=== PATIENT | female | born 2000 | race Caucasian/White ===

== ENCOUNTER 2019-12-06 15:06 | Observation (INO) ==
[2019-12-06] MEDS ORDERED: SODIUM CHLORIDE 1,000 ML IV STA (15:27)
--- NOTE | 2019-12-06 15:36 | ED.PDOC ---
General ED Provider: Dr. LORA MARRUFO MD Chief Complaint: Diabetes Stated Complaint: elevated blood sugar today, above 400 at the out patient clinic, no hx diabetes, + recent polyuria and polydipsia, no fever, +nausea, no emesis, no rash, no injury, speech fluent Time Seen by Physician: 15:33 Mode of Arrival: Wheelchair Information Source: Patient Primary Care Provider: LITZY ALLEN APRN Nursing and Triage Documentation Reviewed and Agree: Yes Does patient meet sepsis criteria?: No System Inflammatory Response Syndrome: Not Applicable Sepsis Protocol: For patient's 13 years and over: Temp is 96.8 and below OR 101 and greater Pulse >90 BPM Resp >20/minute Acutely Altered Mental Status Are patient's symptoms suggestive of a new infection, such as: -Pneumonia -Skin, Soft Tissue -Endocarditis -UTI -Bone, Joint Infection -Implantable Device -Acute Abdominal Infection -Wound Infection -Meningitis -Blood Stream Catheter Infection -Unknown Miscellaneous Complaint Exam Complex/Multi-System Complaint/Exam Onset/Duration: today Symptoms Are: Still present Initial Severity: Mild Associated Signs and Symptoms: Denies Confusion and Chest pain Review of Systems Review Of Systems Constitutional: Reports Weakness; Denies Fever Eyes: Denies Vision change Ears, Nose, Mouth, Throat: Denies Mouth pain Respiratory: Denies Cough Cardiac: Denies Chest pain GI: Reports Nausea; Denies Abdomen distended, Abdominal pain and Vomiting : Denies Dysuria Musculoskeletal: Denies Back pain Skin: Denies Rash Neurological: Denies Cognitive dysfunction All Other Systems: Other [facility] Medical History ADD (attention deficit disorder) (Acute) Aundrea albicans infection (Acute) Fibromyalgia (Acute) Seasonal allergies (Acute) Family History (Updated 12/06/19 @ 18:01 by HARLEEN LUKE RN) Mother Hypertension Fibromyalgia Lupus (systemic lupus erythematosus) Father Diabetes TIA (transient ischemic attack) Seasonal allergies Hypertension Mini stroke Asthma BROTHER Seasonal allergies ADHD MATERNAL GRANDFATHER Cancer Fibromyalgia Arthritis Pancreatic cancer PATERNAL GRANDMOTHER Cancer Diabetes Hypertension PVD (peripheral vascular disease) Blindness Social History Smoking and tobacco status: Never smoker Second hand smoke exposure: Yes Substance use type: does not use Agree to transfusion: Yes Adopted: No Caregiver/support person: No Foster care: No Household members: family Housing: house Marital status: S SINGLE Lives independently: Yes Daycare: no daycare Number of children: 0 Number of grandchildren: 0 Highest education level completed: Associate degree: occupational, technical, vocational program Financial difficulty paying for basics: somewhat hard service: No retirement: No Current occupational status: employed 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 Pets and animals: Yes Leisure activites: sports, exercise, clubs, art, music, games, hunting, fishing and reading History of recent travel: No Sexually active: No Do you think of yourself as: straight/heterosexual Seatbelt use: always Helmet use: No Drives intoxicated or rides with intoxicated roll off driver: No Current diet type/program: regular Well-balanced diet: daily Caffeine: Yes (coffee) Reads food labels: sometimes During the past year weight has: remained stable Water heater temperature set < 120 degrees: Yes Working smoke detector in home: Yes Fire extinguisher in home: Yes Carbon monoxide detector in home: Yes What type of physical activity do you participate in?: walking and yoga Physical activity functional status: independent ambulation Female Reproductive History Menstrual Hx Hysterectomy: No Hx Tubal Ligation: No Physical Exam Physical Exam Appearance: Reports Well-appearing Ill-appearing: None Pain Distress: None Eyes: Reports EOMI ENT: Reports Dry mucosa Neck: Supple Respiratory: Reports Airway patent Cardiovascular: Reports RRR GI/: Reports Soft and Nontender Musculoskeletal: Reports ROM intact Skin: Reports Warm and Dry Neurological: Reports Sensation intact Psychiatric: Reports Affect appropriate Interpretation Radiology Interpretation Radiology Interpretation By: Radiologist Radiology Results: No acute changes Exam Interpreted: CXR Re-Evaluation Re-Evaluation Time of Re-Evaluation: 16:37 Status: Unchanged Appearance: NAD Neuro: Alert and Oriented X3 Additional Comments: new onset diabetes admit d/w ASA [place] 19, serum acetone neg, serum glucose 409 Critical Care Note Critical Care Note Total Time (mins): 0 Course Course Hematology/Chemistry: 12/06/19 15:35 12/06/19 17:30 Orders, Labs, Meds: Lab Review 12/06/19 12/06/19 12/06/19 13:50 15:35 15:35 WBC 6.05 RBC 4.84 Hgb 15.0 Hct 43.5 MCV 89.9 MCH 31.0 MCHC 34.5 RDW Coeff of Yaw 12.3 Plt Count 206 Immature Gran % (Auto) 0.3 Neut % (Auto) 59.4 Lymph % (Auto) 32.6 Parke % (Auto) 6.9 Eos % (Auto) 0.3 Baso % (Auto) 0.5 Immature Gran # (Auto) 0.0 Neut # (Auto) 3.6 Lymph # (Auto) 2.0 Parke # (Auto) 0.4 Eos # (Auto) 0.0 Baso # (Auto) 0.0 Sodium 135.4 Potassium 4.21 Chloride 95.2 L Carbon Dioxide 21.3 L Anion Gap 23.11 BUN 13.2 Creatinine 0.49 L Estimated GFR (MDRD) 159.00 BUN/Creatinine Ratio 26.93 Glucose 409.8 H Lactic Acid 1.64 Calcium 10.27 H Total Bilirubin 0.88 AST 34.3 ALT 39.4 H Alkaline Phosphatase 138.9 H Total Protein 8.92 H Albumin 5.32 H Globulin 3.60 Albumin/Globulin Ratio 1.47 Serum , Qual Urine Color Urine Clarity Urine pH Ur Specific [place] Urine Protein Urine Glucose (UA) Urine Ketones Urine Blood Urine Nitrite Urine Bilirubin Urine Urobilinogen Ur Leukocyte Esterase Acetone, Qual 12/06/19 12/06/19 12/06/19 15:35 15:35 15:40 WBC RBC Hgb Hct MCV MCH MCHC RDW Coeff of Yaw Plt Count Immature Gran % (Auto) Neut % (Auto) Lymph % (Auto) Parke % (Auto) Eos % (Auto) Baso % (Auto) Immature Gran # (Auto) Neut # (Auto) Lymph # (Auto) Parke # (Auto) Eos # (Auto) Baso # (Auto) Sodium Potassium Chloride Carbon Dioxide Anion Gap BUN Creatinine Estimated GFR (MDRD) BUN/Creatinine Ratio Glucose Lactic Acid Calcium Total Bilirubin AST ALT Alkaline Phosphatase Total Protein Albumin Globulin Albumin/Globulin Ratio Serum , Qual Negative Urine Color Yellow Urine Clarity Clear Urine pH 5.0 Ur Specific [place] 1.025 Urine Protein Negative Urine Glucose (UA) 2+ H Urine Ketones 4+ Urine Blood Negative Urine Nitrite Negative Urine Bilirubin Negative Urine Urobilinogen 0.2 Ur Leukocyte Esterase Negative Acetone, Qual None Orders Category Date Time Status ADMIT OBSERVATION [PLACE PATIENT OBSERVATION] .TO ADMISSION 12/06/19 16:38 Active MEDSURG (NON-MONITORED BED) GIVE HS SNACK 2100 CARE 12/06/19 16:39 Active INTAKE & OUTPUT Q8HR CARE 12/06/19 16:39 Active VITAL SIGNS Q8HR CARE 12/06/19 16:39 Active ADA 1800 CLARKE. DIET DIETARY 12/06/19 Dinner Ordered HS SNACK DIETARY 12/06/19 Dinner Ordered ACETONE, QUALITATIVE Stat LAB 12/06/19 15:35 Completed BASIC METABOLIC PANEL DAILY@0600 LAB 12/07/19 06:00 Ordered BASIC METABOLIC PANEL DAILY@0600 LAB 12/08/19 06:00 Ordered CBC W/ AUTO DIFF Stat LAB 12/06/19 15:35 Completed COMPREHENSIVE METABOLIC PANEL Stat LAB 12/06/19 15:35 Completed LACTIC ACID Stat LAB 12/06/19 13:50 Completed SERUM Stat LAB 12/06/19 15:35 Completed URINALYSIS C & S IF INDICATED Stat LAB 12/06/19 15:40 Completed Acetaminophen [Tylenol] MEDS 12/06/19 16:39 Active 650 mg PO Q4H PRN Sodium Chloride 0.9% [Sodium Chloride] 1,000 ml MEDS 12/06/19 17:00 Active IV 75 mls/hr Sodium Chloride 0.9% [Sodium Chloride] 1,000 ml MEDS 12/06/19 15:27 Discontinued IV BOLUS RESUSCITATION STATUS Routine OTHERS 12/06/19 16:39 Ordered CHEST, 1V AP ONLY Stat RADS 12/06/19 15:36 Completed Medications Generic Name Dose Route Start Last Admin Trade Name Freq PRN Reason Stop Dose Admin Acetaminophen 650 mg 12/06/19 16:39 Tylenol PO Q4H PRN Mild Pain Sodium Chloride 1,000 mls @ 75 mls/hr 12/06/19 17:00 12/06/19 17:46 Sodium Chloride IV 75 mls/hr .[id number] KEVIN Administration Insulin Human Regular 100 unit 100 mls @ 5 mls/hr 12/06/19 17:15 / Sodium Chloride IV TITRATE KEVIN Protocol 5 UNIT/HR Insulin Human Regular 0 unit 12/06/19 17:23 Humulin R SUBCUT PRN PRN Hyperglycemia Protocol Discontinued Medications Generic Name Dose Route Start Last Admin Trade Name Freq PRN Reason Stop Dose Admin Sodium Chloride 1,000 mls @ 1,000 mls/hr 12/06/19 15:27 12/06/19 15:51 Sodium Chloride IV 12/06/19 16:26 1,000 mls/hr BOLUS STA Administration Insulin Glargine 20 unit 12/06/19 18:18 Lantus SUBCUT 12/06/19 18:19 ONCE STA Vital Signs: Temp Pulse Resp BP Pulse Ox 12/06/19 15:07 98 F 108 H 20 111/80 97 Discharge Plan Discharge Patient Disposition: PLACED OBSERVATION Discharge Problem: Glycosuria ED Provider: LORA MARRUFO Condition: Stable Discharge Date/Time: 12/06/19 17:00
[2019-12-06 15:39] LABS: HEMATOCRIT 43.5 % (37.0-47.0)
--- NOTE | 2019-12-06 16:32 | DI ---
EXAM: Chest one view HISTORY: Weakness COMPARISON: None TECHNIQUE: Single view of the chest was performed FINDINGS: Normal heart size. Normal mediastinal contour. Right lung calcified granulomas. The lung s are clear. No pleural effusion or pneumothorax. No acute abnormalities of the bones. IMPRESSION: No acute cardiopulmonary process.
[2019-12-06] MEDS ORDERED: TYLENOL PO PRN (16:39)
[2019-12-06] MEDS ORDERED: HUMULIN R SUBCUT PRN (16:39)
[2019-12-06] MEDS ORDERED: SODIUM CHLORIDE 1,000 ML IV SCH (17:00)
[2019-12-06] MEDS ORDERED: HUMULIN R 100 UNIT in SODIUM CHLORIDE 99 ML IV SCH (17:15)
[2019-12-06 17:45] VITALS: BMI 14.2
[2019-12-06] MEDS ORDERED: LANTUS SUBCUT STA (18:18)
[2019-12-06] MEDS: HUMULIN R SUBCUT PRN ×4 (18:32→22:20)
[2019-12-07] MEDS ORDERED: DEXTROSE 5%-WATER IV SOLN 1,000 ML IV SCH (00:30)
[2019-12-07] MEDS: HUMULIN R SUBCUT PRN ×4 (05:15→14:32)
[2019-12-07 06:08] LABS: HEMATOCRIT 35.3 % (37.0-47.0)
[2019-12-07] MEDS ORDERED: K-DUR PO STA (06:29)
[2019-12-07] MEDS ORDERED: MAG-OX PO STA (06:30)
--- NOTE | 2019-12-07 12:36 | PCM ---
Chief Complaint Chief Complaint: new onset/diagnosis diabetes History of Present Illness History of Present Illness: Ms Santillan is a 19 year old female who [facility] with complaints of extreme thirst, dry mouth, and excessive voiding with some intermittent nausea but no vomiting. Pt's vital signs were stable but her urinalysis showed glucosuria and ketonuria with glucose greater than 400. Pt was told to got to the emergency department for further work up. In the emergency department pt was found to have anion gap of 23 initially with hemoglobin A1c of 9.2. She was given IV normal saline x 1 liter. She didn't receive insulin in ED. She was admitted to hospitalist service to the medical floor with orders for insulin gtt titrated to anion gap with specific instructions on when to stop the drip and initiate subcu insulin. On getting to the floor the nurse called me to advise that the pts glucose was already done to 250 so the tridil gtt was not started. She was given insulin glargine 20 units x 1. The pt was followed with q1h glucose checks and q2h BMP and covered with sliding scale insulin thereafter. Gives hx of ADD and previously took adderral. Stopped taking as sophomore in high school. Feels she no longer needs this medication. Pt states just turned 19 so tried marijuana as ingestion for first time. Intermittently vapes. First try of alcohol recently during her birthday celebration. Lives with her boyfriend and his family. States her first menstrual cycle was at age 13. States cycle never regular. Cycles not painful when first started having them. Previously taking control pills but had side effect of bleeding while on the pill. Tried having cycle every three months by continuing to take pills and not taking the 7 day rest pills but continued to having bleeding as well as pain. Not taking BCP x 5 or 6 months. Sexually active states using alternative control method and not trying to get currently. Hx of headaches Not diagnosed with migraines. Never on daily or preventive meds for LINK/migraines. Hx of fibromyalgia after being seen by drawing instructor in [place]. Took gabapentin and lyrica briefly. No longer taking either. Review of Systems Constitutional: Denies fever, chills, weakness, sweats, fatigue, loss of appetite and other Eyes: Denies blurred vision, double-vision, discharge, itching, pain, redness, photophobia and other Ears: Denies pain, bleeding, drainage, ringing, hearing loss and other Nose: Denies bleeding, congestion, discharge and other Throat: Reports other; Denies pain, swelling and voice change Mouth: Reports other (dry mouth); Denies bleeding, pain and swelling Respiratory: Reports other (mouth was dry and sometimes felt like it was hard to breath because of this); Denies cough, shortness of air, wheeze, hemoptysis and pain with breathing Cardiovascular: Denies chest pain, left arm pain, diaphoresis, PND, orthopnea, edema, palpitations, syncope and other Gastrointestinal: Reports nausea; Denies abdominal pain, vomiting, diarrhea, melena, hematemesis, hematochezia, dysphagia, constipation and other Genitourinary: Reports frequency Last Menstrual Cycle: every other week for past 5 months Neurological: Reports headache (hx headache in past not diagnosed with migraines; not improved; not on daily meds), dizziness (has had dizziness in the past and feeling faint but not passing out) and weakness Musculoskeletal: Denies pain, swelling in joints and other Skin: Denies rash, pruritus, lacerations, wounds, bruising and other Hematology: Denies easy bruising, easy bleeding, swollen glands and other Endocrine: Reports excessive thirst and polyuria; Denies weight changes, cold intolerance, heat intolerance, excessive hunger and other Psychiatric: Reports other; Denies depression, anxiety, sleeplessness, hopelessness, suicidal and hallucinations Habits: Reports other (recently ingested marijuana; vapes intermittently; occasional alcohol not that she is 19) Allergies Allergies Allergy/AdvReac Type Severity Reaction Status Date / Time sulfamethoxazole AdvReac Intermediate Hives Verified 12/06/19 15:17 [From Bactrim] trimethoprim [From Bactrim] AdvReac Intermediate Hives Verified 12/06/19 15:17 [facility] Medical History ADD (attention deficit disorder) (Acute) Aundrea albicans infection (Acute) Fibromyalgia (Acute) Seasonal allergies (Acute) Family History Mother Hypertension Fibromyalgia Lupus (systemic lupus erythematosus) Father Diabetes TIA (transient ischemic attack) Seasonal allergies Hypertension Mini stroke Asthma BROTHER Seasonal allergies ADHD MATERNAL GRANDFATHER Cancer Fibromyalgia Arthritis Pancreatic cancer PATERNAL GRANDMOTHER Cancer Diabetes Hypertension PVD (peripheral vascular disease) Blindness Social History Smoking and tobacco status: Never smoker Second hand smoke exposure: Yes Substance use type: does not use Agree to transfusion: Yes Adopted: No Caregiver/support person: No Foster care: No Household members: family Housing: house Marital status: S SINGLE Lives independently: Yes Daycare: no daycare Number of children: 0 Number of grandchildren: 0 Highest education level completed: Associate degree: occupational, technical, vocational program Financial difficulty paying for basics: somewhat hard service: No detention: No Current occupational status: employed 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 Pets and animals: Yes Leisure activites: sports, exercise, clubs, art, music, games, hunting, fishing and reading History of recent travel: No Sexually active: No Do you think of yourself as: straight/heterosexual Seatbelt use: always Helmet use: No Drives intoxicated or rides with intoxicated route relief driver: No Current diet type/program: regular Well-balanced diet: daily Caffeine: Yes (coffee) Reads food labels: sometimes During the past year weight has: remained stable Water heater temperature set < 120 degrees: Yes Working smoke detector in home: Yes Fire extinguisher in home: Yes Carbon monoxide detector in home: Yes What type of physical activity do you participate in?: walking and yoga Physical activity functional status: independent ambulation Medications Medications: Medications Generic Name Dose Route Start Last Admin Trade Name Freq PRN Reason Stop Dose Admin Acetaminophen 650 mg 12/06/19 16:39 Tylenol PO Q4H PRN Mild Pain Sodium Chloride 1,000 mls @ 75 mls/hr 12/06/19 17:00 12/06/19 17:46 Sodium Chloride IV 75 mls/hr .[id number] KEVIN Administration Insulin Human Regular 100 unit 100 mls @ 5 mls/hr 12/06/19 17:15 / Sodium Chloride IV TITRATE KEVIN Protocol 5 UNIT/HR Dextrose 1,000 mls @ 50 mls/hr 12/07/19 00:30 12/07/19 00:58 Dextrose 5%-Water Iv Soln IV 50 mls/hr .Q20H KEVIN Administration Insulin Human Regular 0 unit 12/06/19 17:23 12/07/19 10:20 Humulin R SUBCUT 4 unit PRN PRN Administration Hyperglycemia Protocol Sodium Chloride 1 syr 12/07/19 13:00 Saline Flush IVF Q8HR KEVIN Body Composition Height: 6 ft 3 in Weight: 113 lb 15 oz Body Mass Index (BMI): 14.2 Vital Signs Temperature: 97.8 F Pulse Rate: 83 Respiratory Rate: 16 Blood Pressure: 97/52 O2 Sat by Pulse Oximetry: 99 Physical Examination Appearance: Reports Well-appearing, No pain distress, Well-nourished and Thin Eyes: Reports DANITZA, EOMI and Conjunctiva clear Neck: Supple Respiratory: Reports Airway patent and Breath sounds clear Cardiovascular: Reports RRR and Pulses normal GI/: Reports Soft, Nontender, Bowel sounds normal and No Organomegaly Musculoskeletal: Reports Normal strength, ROM intact and No edema Skin: Reports Warm, Dry and Pale Neurological: Reports Sensation intact, Motor intact, Alert and Oriented Psychiatric: Reports Affect appropriate (flat) and Mood appropriate Lab/Tests/Diagnostic Imaging Lab/Tests/Diagnostic Imaging: Lab Review 12/06/19 12/06/19 12/06/19 13:50 15:35 15:35 WBC 6.05 RBC 4.84 Hgb 15.0 Hct 43.5 MCV 89.9 MCH 31.0 MCHC 34.5 RDW Coeff of Yaw 12.3 Plt Count 206 Immature Gran % (Auto) 0.3 Neut % (Auto) 59.4 Lymph % (Auto) 32.6 [place] % (Auto) 6.9 Eos % (Auto) 0.3 Baso % (Auto) 0.5 Immature Gran # (Auto) 0.0 Neut # (Auto) 3.6 Lymph # (Auto) 2.0 [place] # (Auto) 0.4 Eos # (Auto) 0.0 Baso # (Auto) 0.0 Sodium 135.4 Potassium 4.21 Chloride 95.2 L Carbon Dioxide 21.3 L Anion Gap 23.11 BUN 13.2 Creatinine 0.49 L Estimated GFR (MDRD) 159.00 BUN/Creatinine Ratio 26.93 Glucose 409.8 H Hemoglobin A1c Lactic Acid 1.64 Calcium 10.27 H Magnesium Total Bilirubin 0.88 AST 34.3 ALT 39.4 H Alkaline Phosphatase 138.9 H Total Protein 8.92 H Albumin 5.32 H Globulin 3.60 Albumin/Globulin Ratio 1.47 Serum , Qual Urine Color Urine Clarity Urine pH Ur Specific [place] Urine Protein Urine Glucose (UA) Urine Ketones Urine Blood Urine Nitrite Urine Bilirubin Urine Urobilinogen Ur Leukocyte Esterase Acetone, Qual 12/06/19 12/06/19 12/06/19 15:35 15:35 15:40 WBC RBC Hgb Hct MCV MCH MCHC RDW Coeff of Yaw Plt Count Immature Gran % (Auto) Neut % (Auto) Lymph % (Auto) [place] % (Auto) Eos % (Auto) Baso % (Auto) Immature Gran # (Auto) Neut # (Auto) Lymph # (Auto) [place] # (Auto) Eos # (Auto) Baso # (Auto) Sodium Potassium Chloride Carbon Dioxide Anion Gap BUN Creatinine Estimated GFR (MDRD) BUN/Creatinine Ratio Glucose Hemoglobin A1c Lactic Acid Calcium Magnesium Total Bilirubin AST ALT Alkaline Phosphatase Total Protein Albumin Globulin Albumin/Globulin Ratio Serum , Qual Negative Urine Color Yellow Urine Clarity Clear Urine pH 5.0 Ur Specific [place] 1.025 Urine Protein Negative Urine Glucose (UA) 2+ H Urine Ketones 4+ Urine Blood Negative Urine Nitrite Negative Urine Bilirubin Negative Urine Urobilinogen 0.2 Ur Leukocyte Esterase Negative Acetone, Qual None 12/06/19 12/06/19 12/06/19 17:30 17:30 19:43 WBC RBC Hgb Hct MCV MCH MCHC RDW Coeff of Yaw Plt Count Immature Gran % (Auto) Neut % (Auto) Lymph % (Auto) [place] % (Auto) Eos % (Auto) Baso % (Auto) Immature Gran # (Auto) Neut # (Auto) Lymph # (Auto) [place] # (Auto) Eos # (Auto) Baso # (Auto) Sodium 136.0 133.6 L Potassium 4.39 4.29 Chloride 101.8 100.9 Carbon Dioxide 19.9 L 20.8 L Anion Gap 18.69 16.19 BUN 11.3 12.6 Creatinine 0.45 L 0.58 L Estimated GFR (MDRD) 176.00 131.00 BUN/Creatinine Ratio 25.11 21.72 Glucose 286.6 H D 405.1 H D Hemoglobin A1c 9.92 H Lactic Acid Calcium 9.13 8.94 Magnesium Total Bilirubin AST ALT Alkaline Phosphatase Total Protein Albumin Globulin Albumin/Globulin Ratio Serum , Qual Urine Color Urine Clarity Urine pH Ur Specific [place] Urine Protein Urine Glucose (UA) Urine Ketones Urine Blood Urine Nitrite Urine Bilirubin Urine Urobilinogen Ur Leukocyte Esterase Acetone, Qual 12/06/19 12/06/1912/07/20 21:30 23:30 01:42 WBC RBC Hgb Hct MCV MCH MCHC RDW Coeff of Yaw Plt Count Immature Gran % (Auto) Neut % (Auto) Lymph % (Auto) [place] % (Auto) Eos % (Auto) Baso % (Auto) Immature Gran # (Auto) Neut # (Auto) Lymph # (Auto) [place] # (Auto) Eos # (Auto) Baso # (Auto) Sodium 135.4 137.1 138.2 Potassium 3.70 3.07 L 2.95 L Chloride 103.0 106.1 105.7 Carbon Dioxide 22.0 22.7 23.8 Anion Gap 14.10 11.37 11.65 BUN 14.0 13.8 12.6 Creatinine 0.40 L 0.32 L 0.39 L Estimated GFR (MDRD) 201.00 261.00 207.00 BUN/Creatinine Ratio 35.00 43.12 32.30 Glucose 318.0 H D 154.8 H D 56.0 L D Hemoglobin A1c Lactic Acid Calcium 9.10 9.22 9.18 Magnesium Total Bilirubin AST ALT Alkaline Phosphatase Total Protein Albumin Globulin Albumin/Globulin Ratio Serum , Qual Urine Color Urine Clarity Urine pH Ur Specific [place] Urine Protein Urine Glucose (UA) Urine Ketones Urine Blood Urine Nitrite Urine Bilirubin Urine Urobilinogen Ur Leukocyte Esterase Acetone, Qual 12/07/19 12/07/19 12/07/19 05:45 05:55 05:55 WBC 7.85 RBC 3.92 L Hgb 12.1 Hct 35.3 L D MCV 90.1 MCH 30.9 MCHC 34.3 RDW Coeff of Yaw 12.4 Plt Count 183 Immature Gran % (Auto) 0.4 Neut % (Auto) 69.0 Lymph % (Auto) 22.3 [place] % (Auto) 7.4 Eos % (Auto) 0.5 Baso % (Auto) 0.4 Immature Gran # (Auto) 0.0 Neut # (Auto) 5.4 Lymph # (Auto) 1.8 [place] # (Auto) 0.6 Eos # (Auto) 0.0 Baso # (Auto) 0.0 Sodium 133.9 L Potassium 4.31 Chloride 102.5 Carbon Dioxide 24.5 Anion Gap 11.21 BUN 14.6 Creatinine 0.37 L Estimated GFR (MDRD) 220.00 BUN/Creatinine Ratio 39.45 Glucose 267.2 H D Hemoglobin A1c Lactic Acid Calcium 8.78 Magnesium 1.73 Total Bilirubin AST ALT Alkaline Phosphatase Total Protein Albumin Globulin Albumin/Globulin Ratio Serum , Qual Urine Color Urine Clarity Urine pH Ur Specific [place] Urine Protein Urine Glucose (UA) Urine Ketones Urine Blood Urine Nitrite Urine Bilirubin Urine Urobilinogen Ur Leukocyte Esterase Acetone, Qual Orders Category Date Time Status ADMIT OBSERVATION [PLACE PATIENT OBSERVATION] .TO ADMISSION 12/06/19 16:38 Active MEDSURG (NON-MONITORED BED) BLOOD GLUCOSE MONITORING Q2HR CARE 12/06/19 17:18 Active GIVE HS SNACK 2100 CARE 12/06/19 16:39 Active INTAKE & OUTPUT Q8HR CARE 12/06/19 16:39 Active VITAL SIGNS Q8HR CARE 12/06/19 16:39 Active ADA 1800 CLARKE. DIET DIETARY 12/06/19 Dinner Ordered HS SNACK DIETARY 12/06/19 Dinner Ordered DIELECTRIC MACHINE OPERATOR CONSULT [CONSULT DIELECTRIC MACHINE OPERATOR] ONCE DIELECTRIC MACHINE OPERATOR 12/06/19 18:01 Active ACETONE, QUALITATIVE Stat LAB 12/06/19 15:35 Completed BASIC METABOLIC PANEL DAILY@0600 LAB 12/07/19 05:55 Completed BASIC METABOLIC PANEL DAILY@0600 LAB 12/08/19 06:00 Ordered BMP [BASIC METABOLIC PANEL] Routine LAB 12/06/19 17:30 Completed BMP [BASIC METABOLIC PANEL] Stat LAB 12/06/19 19:43 Completed BMP [BASIC METABOLIC PANEL] Timed LAB 12/06/19 21:30 Completed BMP [BASIC METABOLIC PANEL] Timed LAB 12/06/19 23:30 Completed BMP [BASIC METABOLIC PANEL] Timed LAB 12/07/19 01:42 Completed C-PEPTIDE Routine LAB 12/08/19 06:31 Ordered CBC W/ AUTO DIFF DAILY@0600 LAB 12/07/19 05:55 Completed CBC W/ AUTO DIFF DAILY@0600 LAB 12/08/19 06:00 Ordered CBC W/ AUTO DIFF Stat LAB 12/06/19 15:35 Completed COMPREHENSIVE METABOLIC PANEL Stat LAB 12/06/19 15:35 Completed KALA AUTOANTIBODY Routine LAB 12/08/19 06:31 Ordered HEMOGLOBIN A1C Routine LAB 12/06/19 17:30 Completed IA-2 AUTOANTIBODIES Routine LAB 12/08/19 06:31 Ordered LACTIC ACID Stat LAB 12/06/19 13:50 Completed MAGNESIUM Routine LAB 12/07/19 05:45 Completed MISCELLANEOUS SEND OUT Routine LAB 12/08/19 06:31 Ordered SERUM Stat LAB 12/06/19 15:35 Completed URINALYSIS C & S IF INDICATED Stat LAB 12/06/19 15:40 Completed 0.9 % Sodium Chloride [Saline Flush] MEDS 12/07/19 13:00 Active 1 syr IVF Q8HR Acetaminophen [Tylenol] MEDS 12/06/19 16:39 Active 650 mg PO Q4H PRN Dextrose 5 %-Water [Dextrose 5%-Water IV Soln] 1,000 ml MEDS 12/07/19 00:30 Active IV 50 mls/hr Insulin Glargine,Hum.rec.anlog [Lantus] MEDS 12/06/19 18:18 Discontinued 20 unit SUBCUT ONCE STA Insulin Regular, Human [Humulin R] MEDS 12/06/19 17:23 Active See Dose Instructions SUBCUT PRN PRN Insulin Regular, Human [Humulin R] 100 unit MEDS 12/06/19 17:15 Active 0.9 % Sodium Chloride [Sodium Chloride] 99 ml IV TITRATE Magnesium Oxide [Mag-Ox] MEDS 12/07/19 06:30 Discontinued 400 mg PO ONCE STA Sodium Chloride 0.9% [Sodium Chloride] 1,000 ml MEDS 12/06/19 17:00 Active IV 75 mls/hr Sodium Chloride 0.9% [Sodium Chloride] 1,000 ml MEDS 12/06/19 15:27 Discontinued IV BOLUS RESUSCITATION STATUS Routine OTHERS 12/06/19 16:39 Ordered CHEST, 1V AP ONLY Stat RADS 12/06/19 15:36 Completed Medications Generic Name Dose Route Start Last Admin Trade Name Freq PRN Reason Stop Dose Admin Acetaminophen 650 mg 12/06/19 16:39 Tylenol PO Q4H PRN Mild Pain Sodium Chloride 1,000 mls @ 75 mls/hr 12/06/19 17:00 12/06/19 17:46 Sodium Chloride IV 75 mls/hr .[id number] KEVIN Administration Insulin Human Regular 100 unit 100 mls @ 5 mls/hr 12/06/19 17:15 / Sodium Chloride IV TITRATE KEVIN Protocol 5 UNIT/HR Dextrose 1,000 mls @ 50 mls/hr 12/07/19 00:30 12/07/19 00:58 Dextrose 5%-Water Iv Soln IV 50 mls/hr .Q20H KEVIN Administration Insulin Human Regular 0 unit 12/06/19 17:23 12/07/19 10:20 Humulin R SUBCUT 4 unit PRN PRN Administration Hyperglycemia Protocol Sodium Chloride 1 syr 12/07/19 13:00 Saline Flush IVF Q8HR KEVIN Discontinued Medications Generic Name Dose Route Start Last Admin Trade Name Rickyq PRN Reason Stop Dose Admin Sodium Chloride 1,000 mls @ 1,000 mls/hr 12/06/19 15:27 12/06/19 15:51 Sodium Chloride IV 12/06/19 16:26 1,000 mls/hr BOLUS STA Administration Insulin Glargine 20 unit 12/06/19 18:18 12/06/19 18:35 Lantus SUBCUT 12/06/19 18:19 20 unit ONCE STA Administration Magnesium Oxide 400 mg 12/07/19 06:30 12/07/19 07:12 Mag-Ox PO 12/07/19 06:31 Not Given ONCE STA Assessment (1) Diabetes 1.5, managed as type 1: Status: Acute Code(s): E13.9 - Other specified diabetes mellitus without complications SNOMED Code(s): 834073675 Plan Plan: cont q1h glucose checks; cont q2h BMP until anion gap 12 or less. cont sliding scale insulin. replace electrolytes as needed; oxygen therapy as needed. educate pt on new diagnosis and treatment plan; answer all questions of pt and family present pt will be seen by dispatch manager for education pt will be taught how to perform glucose checks and to administer subcu insulin; how to keep BS log etc will be discharged with rx for glucometer, lancets, syringes, insulin will f/u with newly chosen pcp Dr Flood in 5 or so days. GI PPx: not indicated DVT PPx: ambulation CODE: full
[2019-12-07 14:11] VITALS: BP 98/58; TEMP 98
--- NOTE | 2019-12-07 16:15 | PCM.DC ---
Final Diagnosis: primary: new onset/diagnosis of diabetes type 1 diabetic ketoacidosis secondary: hx ADD hx fibromyalgia HPI: briefly,please see H&P for full documentation; pt presented to [facility] c[facility] office with sxs of polydipsia, polyuria, with glucosuria, ketonuria, and hyperglycemia with glucose greater than 400. pt was sent to emergency for futher wok up and eventually was admitted for further care. pts mother and significant other are present for history/PE. Hospital course: pt was given 1 liter NS in ED. She was not given any insulin in ED. Once she arrived to the floor her glucose was down to 250s. No tridil gtt was started at this point. pt was continued on q1h glucose checks with q2h BMP to assess for anion gap elevation as pts initial AGap was reported at 23. pt was given lantus 20 units when glucose was 250. she was continued on sliding scale insulin coverage. pts anion gap eventually improved and was less than 12 and the q1h glucose checks and q2h BMPs were discontinued. pt was also thought to have potassium of 2.95 but repeat draw showed level >4, possibly coagulated. pt was noted to have blood pressure with systolics in 90s and diastolics in upper 50s and mid 60s. pt states this was normal for her. she also stated she had experienced some episodes of dizziness and feeling faint in the past but not with this current episode of illness. otherwise vital signs were within normal limits with no fever or obvious signs of any type of infectious process. pts polydipsia and polyuria improved. she had 1 or 2 more episodes of complaint of nausea, but, this was when she was performing her own finger sticks and administering her own insulin subcu. she had no vomiting. she maintained her appetite and tolerated ADA diet without difficulty. she was ambulatory to the rest room without assistance and without difficulty. she didn't c/o dizziness or feeling faint when out of bed. pt was seen by [employer] ready to wear and received education about food choices and portion sizes. she is given printed materials. she also has [employer] ready to wear information for further questions/future consultation. Pt states she was in process of choosing Dr Flood as her PCP as she is new to the area and that is why she was at the [facility] on yesterday. I spoke with Dr Flood and he will be glad to see her early next week. He also ordered antibody testing and C peptide send out labs with hopes of having results to discuss when she sees him next week. pts father arrives and we discuss referral to endocrinology. he prefers office in [place] for insurance purposes. Pt is referred to [facility], endocrinology, in [place], and has an appt for December. it is explained that she might be a good candidate for insulin pump and seeing endocrinology could facilitate that. pt will perform glucose checks at least 4 x daily and record her results as well as units of insulin coverage. she will also keep a food diary. pt is released with rx for diabetic supplies, glucometer, and insulin glargine as well as humalog/novolog for meal time coverage. again she has appts for f/u with pcp and endocrinoology. she remained hemodynamically stable and is deemed safe for discharge. (1) Diabetes 1.5, managed as type 1: Status: Acute Code(s): E13.9 - Other specified diabetes mellitus without complications SNOMED Code(s): 963834238 Medications at Discharge: Ambulatory Orders Medication Instructions Recorded 1 [No Reported Medications] 12/06/19 insulin glargine [Lantus U-100 20 unit SUBCUT DAILY 30 Days #100 12/07/19 Insulin] ml
== END 2019-12-07 16:02 | disposition home or self-care (01) ==
LOC: ED 15:06 → MEDSURG B 15:06
PROVIDERS: ADMIT Nurse Practitioner Family; ATTEND Nurse Practitioner Family